=== PATIENT | female | born 1980 | race Caucasian/White ===

== ENCOUNTER 2016-12-12 18:59 | Emergency (ER) | payer MEDICAID ==
[~2016-12-12 18:59] MED LIST: MOTRIN-DPS800 MG PO; SYNTHROID200 MCG PO; TYLENOL EXTRA500 M1 PO
--- NOTE | 2016-12-15 07:42 | ER ---
ADMIT: 12/12/2016 RM/LOC: ER [facility] MR#: [id number] [facility] [address] [place] [id number] [facility] [place] [address] Emergency Room Report SEX: F AGE: 36 : 1980 DATE: 12/12/2016 Please refer to my T-sheet for complete H and P. HISTORY OF PRESENT ILLNESS: Briefly, the patient is a 36-year-old who comes in. She was over at her in-laws. They were setting some cabinet as her was when she went and kind of helped with the cabinet, laid on the couch and then said she felt terrible. She was a little bit unhappy that they were doing this, so she was upset. She has recently had significant hypothyroidism and myxedema coma, which she has been back on her thyroid for about 5 days. PHYSICAL EXAMINATION: VITAL SIGNS: Here all stable. GENERAL: No acute distress. HEENT: She is grossly normal. LUNGS: Clear. HEART: Regular. ABDOMEN: Soft. NEURO: She is a little slow. Her affect is a little flat but nonfocal. EMERGENCY DEPARTMENT COURSE: CBC normal except hemoglobin 10.8. Chemistries normal except potassium 3.4. Her TSH is pending, but her free T4 is 0.58, which has improved from 5 days ago. Urine showed 3+ leukocyte esterase, 22 white cells and 7 red cells. It was sent for culture. I looked up her prior urine that was positive for E. coli, was pansensitive. ASSESSMENT: 1. General weakness. 2. Urinary tract infection. 3. Anxiety. 4. Hypothyroidism, which is improving. PLAN: Bactrim DS b.i.d. for 5 days. Fluids. Return if worse. Continue her thyroid, and I want her to follow up with Reginald this week. Hayden Marley MD/ serg JOB #: [id number] CC: Guevara Beal MD, Attending Physician Brittany Montelongo MD, Family Physician
== END 2016-12-12 21:20 | disposition home or self-care (01) ==
LOC: ER 18:59
DX: E03.9 Hypothyroidism, unspecified (principal); R53.1 Weakness; N39.0 Urinary tract infection, site not specified; F41.9 Anxiety disorder, unspecified; Z90.710 Acquired absence of both cervix and uterus; Z88.5 Allergy status to narcotic agent; Z79.899 Other long term (current) drug therapy